=== PATIENT | female | born 1940 | race Caucasian/White ===

== ENCOUNTER 2021-08-25 19:43 | Inpatient (IN) | payer MEDICARE, SELFPAY ==
[2021-08-25] MEDS ORDERED: INSULIN REGULAR IN 0.9 % NACL 100 UNIT/100 ML BAG ONE (20:42)
[2021-08-25 21:05] LABS: BUN (Urea Nitrogen) 56 mg/dL (9.8-20.1); Calc. Creatinine Clearance 0 mL/min (70-130); Calcium 9.5 mg/dL (7.8-10.44); Chloride 103 mmol/L (98-107); Glucose 538 mg/dL (83-110); Magnesium 2.6 mg/dL (1.6-2.6); Potassium 4.9 mmol/L (3.5-5.1); Sodium 132 mmol/L (136-145)
[2021-08-25 21:10] LABS: Carbon Dioxide Less than 8 mmol/L (23-31)
[2021-08-25 21:12] LABS: Phosphorus 3.7 mg/dL (2.3-4.7)
[2021-08-25 21:18] LABS: Lipase 1586 U/L (8-78)
[2021-08-25] MEDS ORDERED: Sodium Bicarb 50 MEQ/50 ML Abboject 8.4% SYRINGE ONE ×2 (21:32→21:35)
[2021-08-25] MEDS ORDERED: NS 0.9% w/ 20 MEQ KCL 1,000 ML ONE (22:14)
[2021-08-25] MEDS ORDERED: Dextrose 50% Abboject 50 ML SYRINGE SLOW IVP PRN (23:24)
[2021-08-25] MEDS ORDERED: ADD ELECTROLYTE REPLACEMENT SET TO PROFILE FS SCH (23:30)
[2021-08-25] MEDS ORDERED: NS 0.9% w/ 20 MEQ KCL 1,000 ML/1,000 ML BAG IV PRN ×2 (23:30)
[2021-08-25] MEDS ORDERED: HUMULIN R 100 UNITS in Sodium Chloride 0.9% 100 ML IVPB SCH (23:30)
[2021-08-25] MEDS ORDERED: Dextrose 5% in Water 1,000 ML IV PRN (23:30)
[2021-08-25] MEDS ORDERED: Sodium Chloride 0.9% 1,000 ML IV PRN ×4 (23:30)
[2021-08-25] MEDS ORDERED: Dextrose 5 %-0.45 % NaCl 1,000 ML IV PRN (23:30)
[2021-08-25] MEDS ORDERED: Ondansetron PF 4 MG/2 ML Vial IVP PRN (23:33)
[2021-08-25] MEDS ORDERED: Sodium Chloride 0.9% (PF) 10 ML VIAL FS PRN (23:45)
[2021-08-26 00:01] VITALS: BMI 27.3
[2021-08-26 00:32] LABS: Anion Gap 21 mmol/L (10-20); BUN (Urea Nitrogen) 52 mg/dL (9.8-20.1); Calc. Creatinine Clearance 25 mL/min (70-130); Calcium 8.7 mg/dL (7.8-10.44); Carbon Dioxide 14 mmol/L (23-31); Chloride 112 mmol/L (98-107); Glucose 235 mg/dL (83-110); Potassium 4.5 mmol/L (3.5-5.1); Sodium 142 mmol/L (136-145)
[2021-08-26] MEDS: D5 1/2 NS w/20 mEq KCL 1,000 ML IV PRN ×3 (00:36→08:51)
[2021-08-26 04:07] LABS: Hemoglobin A1c Greater than 14.0 % (4.0-6.0)
[2021-08-26 04:09] LABS: #Lymphocytes 1.8 thou/uL (1.20-3.40); %Basophils 0.1 % (0.0-1.0); %Eosinophils 0.1 % (0.0-10.0); %Monocytes 7.4 % (0.0-10.0); %Neutrophils 78.4 % (42.0-75.0); Mean Corpuscular Hemoglobin 31.6 pg (27.0-31.0); Mean Corpuscular Volume 92.9 fL (78.0-98.0); Mean Platelet Volume 8.4 fL (7.4-10.4); Platelet Count 219 thou/uL (130-400); RBC Distribution Width 12.5 % (11.5-14.5); Red Blood Cell (RBC) Count 3.81 mill/uL (4.20-5.40); White Blood Cell (WBC) Count 12.8 thou/uL (4.8-10.8)
[2021-08-26 04:17] LABS: Lactic Acid 1.9 mmol/L (0.5-2.2)
[2021-08-26 04:28] LABS: ALT (SGPT) 11 U/L (8-55); AST (SGOT) 13 U/L (5-34); Albumin 3.1 g/dL (3.4-4.8); Alkaline Phosphatase 92 U/L (40-110); Anion Gap 13 mmol/L (10-20); BUN (Urea Nitrogen) 42 mg/dL (9.8-20.1); Bilirubin, Total Less than 0.2 mg/dL (0.2-1.2); Calc. Creatinine Clearance 30 mL/min (70-130); Calcium 8.4 mg/dL (7.8-10.44); Carbon Dioxide 21 mmol/L (23-31); Chloride 114 mmol/L (98-107); Globulin 2.6 g/dL (2.4-3.5); Glucose 202 mg/dL (83-110); Potassium 4.1 mmol/L (3.5-5.1); Protein, Total 5.7 g/dL (5.8-8.1); Sodium 144 mmol/L (136-145)
[2021-08-26 04:29] LABS: Anion Gap 12 mmol/L (10-20); BUN (Urea Nitrogen) 39 mg/dL (9.8-20.1); Calc. Creatinine Clearance 31 mL/min (70-130); Calcium 8.5 mg/dL (7.8-10.44); Carbon Dioxide 21 mmol/L (23-31); Chloride 114 mmol/L (98-107); Glucose 199 mg/dL (83-110); Magnesium 2.1 mg/dL (1.6-2.6); Sodium 143 mmol/L (136-145)
[2021-08-26] MEDS: Acetaminophen 325 MG TAB PO PRN ×2 (06:27→21:01)
[2021-08-26 08:12] LABS: Anion Gap 10 mmol/L (10-20); BUN (Urea Nitrogen) 33 mg/dL (9.8-20.1); Calc. Creatinine Clearance 37 mL/min (70-130); Calcium 8.2 mg/dL (7.8-10.44); Carbon Dioxide 21 mmol/L (23-31); Chloride 113 mmol/L (98-107); Glucose 135 mg/dL (83-110); Sodium 140 mmol/L (136-145)
[2021-08-26] MEDS: Enoxaparin Sodium 30 MG/0.3 ML SYRINGE SC SCH (08:35)
[2021-08-26] MEDS: Pantoprazole 40 MG VIAL IVP SCH (08:35)
[2021-08-26] MEDS ORDERED: Lantus 1000 UNITS/10 ML VIAL SC SCH (10:15)
[2021-08-26] MEDS: Sodium Chloride 0.45% 1,000 ML IV SCH (11:29)
[2021-08-26 17:03] LABS: SARS-CoV-2 PCR by NAA Not Detected (NotDetected)
[2021-08-26] MEDS: HumaLOG 300 UNITS/3 ML VIAL SC PRN ×2 (18:19→21:01)
[2021-08-26] MEDS: hydrALAZINE 20 MG/ML VIAL SLOW IVP PRN (19:28)
[2021-08-27] MEDS ORDERED: Acetaminophen/Codeine 30-300mg Tablet PO SCH (00:34)
[2021-08-27] MEDS: Sodium Chloride 0.45% 1,000 ML IV SCH ×2 (00:46→12:09)
[2021-08-27] MEDS: Acetaminophen 325 MG TAB PO PRN ×2 (04:08→21:54)
[2021-08-27] MEDS: HumaLOG 300 UNITS/3 ML VIAL SC PRN ×4 (05:46→19:55)
[2021-08-27 06:42] LABS: #Eosinphils 0.1 thou/uL (0.0-0.7); #Lymphocytes 2.5 thou/uL (1.20-3.40); #Monocytes 0.4 thou/uL (0.11-0.59); #Neutrophils 5.5 thou/uL (1.40-6.50); %Basophils 0.3 % (0.0-1.0); %Eosinophils 0.9 % (0.0-10.0); %Lymphocytes 29.8 % (21.0-51.0); %Monocytes 4.8 % (0.0-10.0); %Neutrophils 64.3 % (42.0-75.0); Mean Corpuscular HGB CONC 34.4 g/dL (32.0-36.0); Mean Corpuscular Hemoglobin 31.9 pg (27.0-31.0); Mean Corpuscular Volume 92.8 fL (78.0-98.0); Mean Platelet Volume 8.2 fL (7.4-10.4); Platelet Count 162 thou/uL (130-400); RBC Distribution Width 12.6 % (11.5-14.5); Red Blood Cell (RBC) Count 3.43 mill/uL (4.20-5.40); White Blood Cell (WBC) Count 8.5 thou/uL (4.8-10.8)
[2021-08-27 07:02] LABS: Anion Gap 11 mmol/L (10-20); BUN (Urea Nitrogen) 12 mg/dL (9.8-20.1); Calc. Creatinine Clearance 56 mL/min (70-130); Carbon Dioxide 18 mmol/L (23-31); Chloride 111 mmol/L (98-107); Potassium 3.8 mmol/L (3.5-5.1); Sodium 136 mmol/L (136-145)
[2021-08-27 07:03] LABS: ALT (SGPT) 11 U/L (8-55); AST (SGOT) 15 U/L (5-34); Albumin 2.6 g/dL (3.4-4.8); Alkaline Phosphatase 87 U/L (40-110); Bilirubin, Total 0.2 mg/dL (0.2-1.2); Calcium 8.5 mg/dL (7.8-10.44); Cardiac Risk 4.1 (Less than 4.5); Cholesterol 134 mg/dl (< 200 Desired); Globulin 2.4 g/dL (2.4-3.5); Glucose 195 mg/dL (83-110); HDL Cholesterol 33 mg/dL (>60 Neg Risk); LDL Cholesterol, Calculated 63 mg/dL; Magnesium 2.1 mg/dL (1.6-2.6); Triglycerides 190 mg/dL (Less than 150)
[2021-08-27] MEDS: Pantoprazole 40 MG VIAL IVP SCH (08:22)
[2021-08-27] MEDS: Enoxaparin Sodium 30 MG/0.3 ML SYRINGE SC SCH (08:22)
[2021-08-27] MEDS: Lantus 1000 UNITS/10 ML VIAL SC SCH (09:21)
[2021-08-27] MEDS: hydrALAZINE 20 MG/ML VIAL SLOW IVP PRN (17:14)
[2021-08-28] MEDS: Sodium Chloride 0.45% 1,000 ML IV SCH (01:30)
[2021-08-28] MEDS: Acetaminophen 325 MG TAB PO PRN ×3 (01:31→20:45)
[2021-08-28] MEDS: HumaLOG 300 UNITS/3 ML VIAL SC PRN ×4 (05:30→20:45)
[2021-08-28 07:24] LABS: #Eosinphils 0.1 thou/uL (0.0-0.7); #Monocytes 0.4 thou/uL (0.11-0.59); %Basophils 0.5 % (0.0-1.0); %Eosinophils 1.5 % (0.0-10.0); %Lymphocytes 30.7 % (21.0-51.0); %Monocytes 5.8 % (0.0-10.0); %Neutrophils 61.5 % (42.0-75.0); Hemoglobin 11.1 g/dL (12.0-16.0); Mean Corpuscular HGB CONC 35.1 g/dL (32.0-36.0); Mean Corpuscular Hemoglobin 32.5 pg (27.0-31.0); Mean Corpuscular Volume 92.6 fL (78.0-98.0); Mean Platelet Volume 8.4 fL (7.4-10.4); Platelet Count 160 thou/uL (130-400); RBC Distribution Width 12.5 % (11.5-14.5); Red Blood Cell (RBC) Count 3.43 mill/uL (4.20-5.40); White Blood Cell (WBC) Count 6.4 thou/uL (4.8-10.8)
[2021-08-28 07:46] LABS: Anion Gap 10 mmol/L (10-20); BUN (Urea Nitrogen) 9 mg/dL (9.8-20.1); Calc. Creatinine Clearance 53 mL/min (70-130); Calcium 8.9 mg/dL (7.8-10.44); Carbon Dioxide 21 mmol/L (23-31); Chloride 109 mmol/L (98-107); Glucose 197 mg/dL (83-110); Magnesium 1.9 mg/dL (1.6-2.6); Potassium 3.8 mmol/L (3.5-5.1); Sodium 136 mmol/L (136-145)
[2021-08-28] MEDS: Enoxaparin Sodium 30 MG/0.3 ML SYRINGE SC SCH (08:12)
[2021-08-28] MEDS: Lantus 1000 UNITS/10 ML VIAL SC SCH (08:12)
[2021-08-28] MEDS: Pantoprazole 40 MG VIAL IVP SCH (08:12)
[2021-08-28] MEDS: hydrALAZINE 20 MG/ML VIAL SLOW IVP PRN (11:39)
[2021-08-28] MEDS ORDERED: hydrOXYzine 10 MG TAB PO PRN (23:03)
[2021-08-29] MEDS: Melatonin 3 MG TAB PO PRN ×2 (02:02→22:41)
[2021-08-29] MEDS: Acetaminophen 325 MG TAB PO PRN (02:43)
[2021-08-29] MEDS: hydrALAZINE 20 MG/ML VIAL SLOW IVP PRN (02:43)
[2021-08-29] MEDS: HumaLOG 300 UNITS/3 ML VIAL SC PRN ×4 (04:49→20:50)
[2021-08-29 07:53] LABS: Anion Gap 13 mmol/L (10-20); BUN (Urea Nitrogen) 9 mg/dL (9.8-20.1); Calc. Creatinine Clearance 52 mL/min (70-130); Carbon Dioxide 24 mmol/L (23-31); Chloride 105 mmol/L (98-107); Glucose 203 mg/dL (83-110); Potassium 3.8 mmol/L (3.5-5.1); Sodium 138 mmol/L (136-145)
[2021-08-29] MEDS: Lantus 1000 UNITS/10 ML VIAL SC SCH (09:38)
[2021-08-29] MEDS: Enoxaparin Sodium 30 MG/0.3 ML SYRINGE SC SCH (09:38)
[2021-08-29] MEDS: Pantoprazole 40 MG VIAL IVP SCH (09:39)
[2021-08-29] MEDS ORDERED: Amlodipine 10 MG TAB PO SCH (10:30)
[2021-08-29] MEDS ORDERED: Ondansetron ORAL SOLN. 4 MG/5 ML UDCUP PO PRN (23:52)
[2021-08-30] MEDS ORDERED: Ondansetron ODT 4 MG TAB PO PRN (00:01)
[2021-08-30] MEDS: HumaLOG 300 UNITS/3 ML VIAL SC PRN ×2 (06:06→11:56)
[2021-08-30 08:11] LABS: Anion Gap 13 mmol/L (10-20); BUN (Urea Nitrogen) 14 mg/dL (9.8-20.1); Calc. Creatinine Clearance 48 mL/min (70-130); Calcium 9.8 mg/dL (7.8-10.44); Carbon Dioxide 21 mmol/L (23-31); Chloride 102 mmol/L (98-107); Glucose 331 mg/dL (83-110); Potassium 3.9 mmol/L (3.5-5.1); Sodium 132 mmol/L (136-145)
[2021-08-30] MEDS: Enoxaparin Sodium 30 MG/0.3 ML SYRINGE SC SCH (08:37)
[2021-08-30] MEDS: Lantus 1000 UNITS/10 ML VIAL SC SCH (08:37)
[2021-08-30] MEDS ORDERED: Amlodipine 10 MG TAB PO SCH (09:00)
[2021-08-30] MEDS ORDERED: Lantus 1000 UNITS/10 ML VIAL SC SCH (09:00)
[2021-08-30 16:33] VITALS: BP 168/83; TEMP 97.9
== END 2021-08-30 15:48 | disposition home or self-care (01) | DRG 438 ==
LOC: ERS 19:43 → IMCU/EMU 21:52 → T4-A 08-26 21:25
PROVIDERS: ADMIT Internal Medicine; ATTEND Internal Medicine
DX: K85.90 Acute pancreatitis without necrosis or infection, unspecified (principal); E11.10 Type 2 diabetes mellitus with ketoacidosis without coma; G93.41 Metabolic encephalopathy; N17.9 Acute kidney failure, unspecified; Z20.822 Contact with and (suspected) exposure to COVID-19; Z66 Do not resuscitate; K21.9 Gastro-esophageal reflux disease without esophagitis; E03.9 Hypothyroidism, unspecified; I10 Essential (primary) hypertension; E78.5 Hyperlipidemia, unspecified; E86.0 Dehydration; Z88.0 Allergy status to penicillin; Z88.2 Allergy status to sulfonamides; Z79.4 Long term (current) use of insulin; Z79.890 Hormone replacement therapy; Z79.899 Other long term (current) drug therapy
CPT/HCPCS: 36415; 36416; 74176; 76705; 80048; 80053; 80061; 83036; 83605; 83690; 83735; 84100; 85025; 96374; 96375; C9113; J0360; J1650; J1815; J2405; J3480; U0003; U0005